=== PATIENT | male | born 1930 | race Asian ===

== ENCOUNTER 2019-01-22 01:47 | Inpatient (IN) | payer MEDICARE, OTHER ==
[2019-01-22] MEDS: IPRATROPIUM (NEB) 0.5 MG/2.5 ML AMP INH (02:13)
[2019-01-22] MEDS: ALBUTEROL 0.5% (NEB) 2.5 MG/0.5 ML AMP INH (02:13)
[2019-01-22 02:27] LABS: Allen Test ACCEPTAB; MODE MASK - SIMPLE; MetHgb Venous 0.3 %; Sample Type Blood venous; Site VENOUS LINE; Venous COHb 0.9 %; Venous Fraction OxyHgb 66.1 %; Venous Oxygen Sat 66.9 mmHG (55.0-75.0); Venous Total Hemglobin 14.2 g/dl
[2019-01-22 02:31] LABS: ADD MAN DIFF? NO
[2019-01-22 02:32] LABS: BASOPHIL # 0.1 10^3/ul (0.0-0.1); BASOPHILS % 0.3 % (0.0-2.0); EOSINOPHILS % 0.2 % (0.0-7.0); HEMATOCRIT 42.9 % (42.0-52.0); HEMOGLOBIN 13.7 g/dl (14.0-18.0); LYMPHOCYTES # 1.9 10^3/ul (0.8-2.9); MEAN CORPUSCULAR HEMOGLOBIN 28.4 pg (29.0-33.0); MEAN CORPUSCULAR HGB CONC 31.9 g/dl (32.0-37.0); MEAN CORPUSCULAR VOLUME 88.8 fl (82.0-101.0); MEAN PLATELET VOLUME 10.8 fl (7.4-10.4); MONOCYTES % 5.8 % (0.0-11.0); NEUTROPHIL # 14.5 10^3/ul (1.6-7.5); NEUTROPHILS % 82.2 % (39.0-77.0); PLATELET COUNT 239 10^3/UL (140-415); RED BLOOD COUNT 4.83 10^6/ul (4.70-6.10); RED CELL DISTRIBUTION WIDTH 16.4 % (11.5-14.5)
[2019-01-22 02:32] LABS: WHITE BLOOD COUNT 17.6 10^3/ul (4.8-10.8)
[2019-01-22 02:56] LABS: ANION GAP 16 (5-13); BLOOD UREA NITROGEN 53 mg/dl (7-20); CALCIUM 9.7 mg/dl (8.4-10.2); CARBON DIOXIDE 28 mmol/L (21-31); CHLORIDE 95 mmol/L (97-110); CREATININE 7.53 mg/dl (0.61-1.24); GLUCOSE 196 mg/dl (70-220); SODIUM 139 mmol/L (135-144)
[2019-01-22] MEDS: SODIUM CHLORIDE 0.9% 1L BAG IV* (03:29)
[2019-01-22] MEDS: CEFEPIME 2GM/50 ML (PMX) 50 ML IVPB (03:29)
[2019-01-22] MEDS: VANCOMYCIN 1 GM (PMX) 250 ML IVPB (04:11)
[2019-01-22] MEDS ORDERED: ONDANSETRON 4 MG INJ IV (05:00)
[2019-01-22] MEDS ORDERED: ACETAMINOPHEN 325 MG TAB PO (05:00)
[2019-01-22 05:19] LABS: B-TYPE NATRIURETIC PEPTIDE 60600 PG/ML (0-450)
[2019-01-22 06:20] LABS: LACTIC ACID 2.8 mmol/L (0.5-2.0)
[2019-01-22] MEDS ORDERED: VANCOMYCIN IV PER PHARMACY XX (08:30)
[2019-01-22] MEDS ORDERED: MAGNESIUM HYDROXIDE 30ML CUP PO (08:30)
[2019-01-22] MEDS: HYDROCODONE/APAP (5/325) TAB PO (09:42)
[2019-01-22] MEDS ORDERED: DEXTROSE 50% 50 ML SYRINGE IV ×2 (10:00)
[2019-01-22] MEDS ORDERED: GLUCOSE GEL 15 GRAM TUBE PO ×2 (10:00)
[2019-01-22] MEDS ORDERED: GLUCAGON 1 MG INJ IM (10:00)
[2019-01-22] MEDS ORDERED: GLUCOSE GEL 15 GRAM TUBE BUCCAL (10:00)
[2019-01-22] MEDS: APIXABAN 5 MG TABLET PO ×2 (10:05→21:34)
[2019-01-22] MEDS: METOPROLOL 25 MG TAB PO ×2 (10:05→21:35)
[2019-01-22] MEDS: INSULIN ASPART [NOVOLOG] 3 ML PEN SC ×3 (11:39→21:00)
[2019-01-22] MEDS: SEVELAMER CARBONATE 0.8 GM PKT PO ×2 (11:50→18:27)
[2019-01-22 12:23] LABS: HEPATITIS B SURFACE ANTIBODY NEGATIVE (NEGATIVE)
[2019-01-22 13:01] LABS: HEPATITIS B SURFACE ANTIGEN NEGATIVE (NEGATIVE)
[2019-01-22] MEDS: AMLODIPINE 5 MG TAB PO (13:26)
[2019-01-22] MEDS: MULTIVIT/CA CARB/B CMPLX/FA TAB PO (15:08)
[2019-01-22] MEDS: DOCUSATE SODIUM 250 MG CAP PO (15:09)
[2019-01-22] MEDS: ASCORBIC ACID 500 MG TAB PO (15:09)
[2019-01-22] MEDS: POLYETHYLENE GLYCOL 17 GM PACKET PO (15:09)
[2019-01-22] MEDS: FINASTERIDE 5 MG TAB PO (15:09)
[2019-01-22] MEDS: ACETAMINOPHEN 500 MG TAB PO (15:21)
[2019-01-22] MEDS: ATORVASTATIN 10 MG TAB PO (21:35)
[2019-01-23 06:49] LABS: ADD MAN DIFF? NO
[2019-01-23 06:56] LABS: BASOPHILS % 0.3 % (0.0-2.0); EOSINOPHILS % 0.1 % (0.0-7.0); HEMOGLOBIN 11.7 g/dl (14.0-18.0); LYMPHOCYTES # 0.8 10^3/ul (0.8-2.9); LYMPHOCYTES % 7.1 % (15.0-51.0); MEAN CORPUSCULAR HEMOGLOBIN 28.8 pg (29.0-33.0); MEAN CORPUSCULAR HGB CONC 32.5 g/dl (32.0-37.0); MEAN CORPUSCULAR VOLUME 88.7 fl (82.0-101.0); MEAN PLATELET VOLUME 11.6 fl (7.4-10.4); MONOCYTES % 9.1 % (0.0-11.0); NEUTROPHIL # 9.2 10^3/ul (1.6-7.5); PLATELET COUNT 199 10^3/UL (140-415); RED BLOOD COUNT 4.06 10^6/ul (4.70-6.10); RED CELL DISTRIBUTION WIDTH 16.6 % (11.5-14.5)
[2019-01-23 07:23] LABS: ANION GAP 13 (5-13); BLOOD UREA NITROGEN 34 mg/dl (7-20); CALCIUM 9.5 mg/dl (8.4-10.2); CARBON DIOXIDE 29 mmol/L (21-31); CHLORIDE 98 mmol/L (97-110); CREATININE 5.59 mg/dl (0.61-1.24); GLUCOSE 85 mg/dl (70-220); MAGNESIUM 2.1 mg/dl (1.7-2.5); PHOSPHORUS 4.7 mg/dl (2.5-4.9); POTASSIUM 5.6 mmol/L (3.5-5.1); SODIUM 140 mmol/L (135-144)
[2019-01-23] MEDS: INSULIN ASPART [NOVOLOG] 3 ML PEN SC ×4 (07:53→20:49)
[2019-01-23] MEDS: SEVELAMER CARBONATE 0.8 GM PKT PO ×3 (08:37→16:59)
[2019-01-23] MEDS: POLYETHYLENE GLYCOL 17 GM PACKET PO (08:37)
[2019-01-23] MEDS: APIXABAN 5 MG TABLET PO ×2 (08:38→20:49)
[2019-01-23] MEDS: ASCORBIC ACID 500 MG TAB PO (08:38)
[2019-01-23] MEDS: DOCUSATE SODIUM 250 MG CAP PO (08:38)
[2019-01-23] MEDS: MULTIVIT/CA CARB/B CMPLX/FA TAB PO (08:38)
[2019-01-23] MEDS: FINASTERIDE 5 MG TAB PO (08:38)
[2019-01-23] MEDS: METOPROLOL 25 MG TAB PO ×2 (08:42→21:00)
[2019-01-23] MEDS: AMLODIPINE 5 MG TAB PO (08:43)
[2019-01-23 10:23] LABS: CREATINE KINASE 32 IU/L (23-200)
[2019-01-23 10:33] LABS: CK-MB 0.65 ng/ml (0.0-2.4)
[2019-01-23 10:37] LABS: TROPONIN-I 0.022 ng/ml (0.000-0.120)
[2019-01-23] MEDS: ACETAMINOPHEN 500 MG TAB PO (11:29)
[2019-01-23] MEDS: CEFEPIME 1GM/50 ML (PMX) 50 ML IVPB (11:30)
[2019-01-23] MEDS: ATORVASTATIN 10 MG TAB PO (20:49)
[2019-01-24 06:51] LABS: WHITE BLOOD COUNT 8.3 10^3/ul (4.8-10.8)
[2019-01-24 06:51] LABS: ADD MAN DIFF? NO; BASOPHIL # 0.1 10^3/ul (0.0-0.1); BASOPHILS % 0.7 % (0.0-2.0); EOSINOPHILS % 0.4 % (0.0-7.0); HEMATOCRIT 36.8 % (42.0-52.0); HEMOGLOBIN 12.3 g/dl (14.0-18.0); LYMPHOCYTES % 12.3 % (15.0-51.0); MEAN CORPUSCULAR HEMOGLOBIN 29.3 pg (29.0-33.0); MEAN CORPUSCULAR HGB CONC 33.4 g/dl (32.0-37.0); MEAN CORPUSCULAR VOLUME 87.6 fl (82.0-101.0); MEAN PLATELET VOLUME 11.3 fl (7.4-10.4); MONOCYTES % 11.7 % (0.0-11.0); NEUTROPHIL # 6.2 10^3/ul (1.6-7.5); NEUTROPHILS % 74.7 % (39.0-77.0); PLATELET COUNT 220 10^3/UL (140-415); RED CELL DISTRIBUTION WIDTH 16.4 % (11.5-14.5)
[2019-01-24 07:05] LABS: ANION GAP 12 (5-13); BLOOD UREA NITROGEN 22 mg/dl (7-20); CALCIUM 9.2 mg/dl (8.4-10.2); CARBON DIOXIDE 31 mmol/L (21-31); CHLORIDE 96 mmol/L (97-110); CREATININE 3.92 mg/dl (0.61-1.24); GLUCOSE 77 mg/dl (70-220); PHOSPHORUS 3.5 mg/dl (2.5-4.9); POTASSIUM 4.4 mmol/L (3.5-5.1); SODIUM 139 mmol/L (135-144)
[2019-01-24 07:26] LABS: VANCOMYCIN,RANDOM 8.4 ug/ml
[2019-01-24] MEDS: INSULIN ASPART [NOVOLOG] 3 ML PEN SC ×4 (07:55→21:00)
[2019-01-24] MEDS: ASCORBIC ACID 500 MG TAB PO (08:25)
[2019-01-24] MEDS: DOCUSATE SODIUM 250 MG CAP PO (08:25)
[2019-01-24] MEDS: MULTIVIT/CA CARB/B CMPLX/FA TAB PO (08:25)
[2019-01-24] MEDS: METOPROLOL 25 MG TAB PO ×2 (08:25→21:00)
[2019-01-24] MEDS: SEVELAMER CARBONATE 0.8 GM PKT PO ×3 (08:25→19:10)
[2019-01-24] MEDS: APIXABAN 5 MG TABLET PO ×2 (08:25→21:13)
[2019-01-24] MEDS: FINASTERIDE 5 MG TAB PO (08:25)
[2019-01-24] MEDS: AMLODIPINE 5 MG TAB PO (08:25)
[2019-01-24] MEDS: POLYETHYLENE GLYCOL 17 GM PACKET PO (08:25)
[2019-01-24] MEDS: CEFEPIME 1GM/50 ML (PMX) 50 ML IVPB (11:40)
[2019-01-24] MEDS ORDERED: VANCOMYCIN HCL 1.25 GM in SOD CHLORIDE 0.9% 250 ML IVPB (14:00)
[2019-01-24] MEDS: VANCOMYCIN HCL 1.25 GM in SOD CHLORIDE 0.9% 250 ML IVPB (19:05)
[2019-01-24] MEDS: ATORVASTATIN 10 MG TAB PO (21:13)
[2019-01-25] MEDS: INSULIN ASPART [NOVOLOG] 3 ML PEN SC ×4 (07:55→20:40)
[2019-01-25] MEDS: METOPROLOL 25 MG TAB PO ×2 (08:42→20:40)
[2019-01-25] MEDS: ASCORBIC ACID 500 MG TAB PO (08:43)
[2019-01-25] MEDS: FINASTERIDE 5 MG TAB PO (08:43)
[2019-01-25] MEDS: DOCUSATE SODIUM 250 MG CAP PO (08:43)
[2019-01-25] MEDS: APIXABAN 5 MG TABLET PO ×2 (08:43→20:35)
[2019-01-25] MEDS: MULTIVIT/CA CARB/B CMPLX/FA TAB PO (08:43)
[2019-01-25] MEDS: AMLODIPINE 5 MG TAB PO (08:44)
[2019-01-25] MEDS: POLYETHYLENE GLYCOL 17 GM PACKET PO (08:44)
[2019-01-25] MEDS: SEVELAMER CARBONATE 0.8 GM PKT PO ×3 (08:44→17:04)
[2019-01-25] MEDS: CEFEPIME 1GM/50 ML (PMX) 50 ML IVPB (11:54)
[2019-01-25] MEDS: ATORVASTATIN 10 MG TAB PO (20:36)
[2019-01-26] MEDS: HYDROCODONE/APAP (5/325) TAB PO (02:26)
[2019-01-26 06:33] LABS: ADD MAN DIFF? NO
[2019-01-26 06:40] LABS: BASOPHIL # 0.1 10^3/ul (0.0-0.1); EOSINOPHILS # 0.3 10^3/ul (0.0-0.5); EOSINOPHILS % 4.7 % (0.0-7.0); HEMATOCRIT 33.9 % (42.0-52.0); HEMOGLOBIN 11.2 g/dl (14.0-18.0); LYMPHOCYTES # 1.1 10^3/ul (0.8-2.9); MEAN CORPUSCULAR HEMOGLOBIN 28.7 pg (29.0-33.0); MEAN CORPUSCULAR VOLUME 86.9 fl (82.0-101.0); MEAN PLATELET VOLUME 10.9 fl (7.4-10.4); MONOCYTE # 0.7 10^3/ul (0.3-0.9); NEUTROPHIL # 3.7 10^3/ul (1.6-7.5); NEUTROPHILS % 62.8 % (39.0-77.0); PLATELET COUNT 235 10^3/UL (140-415); RED CELL DISTRIBUTION WIDTH 15.7 % (11.5-14.5)
[2019-01-26 06:40] LABS: WHITE BLOOD COUNT 5.9 10^3/ul (4.8-10.8)
[2019-01-26 07:13] LABS: VANCOMYCIN,RANDOM 18.1 ug/ml
[2019-01-26 07:26] LABS: ANION GAP 12 (5-13); BLOOD UREA NITROGEN 43 mg/dl (7-20); CALCIUM 8.8 mg/dl (8.4-10.2); CARBON DIOXIDE 29 mmol/L (21-31); CHLORIDE 96 mmol/L (97-110); CREATININE 5.26 mg/dl (0.61-1.24); GLUCOSE 80 mg/dl (70-220); MAGNESIUM 2.1 mg/dl (1.7-2.5); PHOSPHORUS 3.8 mg/dl (2.5-4.9); POTASSIUM 4.2 mmol/L (3.5-5.1); SODIUM 137 mmol/L (135-144)
[2019-01-26] MEDS: INSULIN ASPART [NOVOLOG] 3 ML PEN SC ×4 (07:55→21:00)
[2019-01-26] MEDS: FINASTERIDE 5 MG TAB PO (08:27)
[2019-01-26] MEDS: DOCUSATE SODIUM 250 MG CAP PO (08:27)
[2019-01-26] MEDS: SEVELAMER CARBONATE 0.8 GM PKT PO ×3 (08:27→17:01)
[2019-01-26] MEDS: ASCORBIC ACID 500 MG TAB PO (08:27)
[2019-01-26] MEDS: MULTIVIT/CA CARB/B CMPLX/FA TAB PO (08:27)
[2019-01-26] MEDS: APIXABAN 5 MG TABLET PO ×2 (08:27→21:00)
[2019-01-26] MEDS: POLYETHYLENE GLYCOL 17 GM PACKET PO (08:29)
[2019-01-26] MEDS: METOPROLOL 25 MG TAB PO ×3 (08:33→21:00)
[2019-01-26] MEDS: AMLODIPINE 5 MG TAB PO (09:00)
[2019-01-26] MEDS: CEFEPIME 1GM/50 ML (PMX) 50 ML IVPB (11:52)
[2019-01-26] MEDS: ATORVASTATIN 10 MG TAB PO (21:00)
[2019-01-26] MEDS: VANCOMYCIN 1 GM 250 ML IVPB (22:10)
[2019-01-27 06:42] LABS: ADD MAN DIFF? NO
[2019-01-27 06:56] LABS: BASOPHIL # 0.1 10^3/ul (0.0-0.1); BASOPHILS % 1.2 % (0.0-2.0); EOSINOPHILS # 0.3 10^3/ul (0.0-0.5); EOSINOPHILS % 4.7 % (0.0-7.0); HEMATOCRIT 36.5 % (42.0-52.0); HEMOGLOBIN 12.1 g/dl (14.0-18.0); LYMPHOCYTES # 1.3 10^3/ul (0.8-2.9); LYMPHOCYTES % 21.1 % (15.0-51.0); MEAN CORPUSCULAR HEMOGLOBIN 28.5 pg (29.0-33.0); MEAN CORPUSCULAR HGB CONC 33.2 g/dl (32.0-37.0); MEAN CORPUSCULAR VOLUME 85.9 fl (82.0-101.0); MEAN PLATELET VOLUME 10.9 fl (7.4-10.4); MONOCYTE # 0.6 10^3/ul (0.3-0.9); MONOCYTES % 10.6 % (0.0-11.0); NEUTROPHIL # 3.7 10^3/ul (1.6-7.5); NEUTROPHILS % 61.7 % (39.0-77.0); PLATELET COUNT 274 10^3/UL (140-415); RED BLOOD COUNT 4.25 10^6/ul (4.70-6.10); RED CELL DISTRIBUTION WIDTH 15.8 % (11.5-14.5)
[2019-01-27 06:56] LABS: WHITE BLOOD COUNT 5.9 10^3/ul (4.8-10.8)
[2019-01-27 07:15] LABS: ANION GAP 12 (5-13); BLOOD UREA NITROGEN 24 mg/dl (7-20); CALCIUM 9.4 mg/dl (8.4-10.2); CARBON DIOXIDE 31 mmol/L (21-31); CHLORIDE 97 mmol/L (97-110); CREATININE 3.99 mg/dl (0.61-1.24); GLUCOSE 86 mg/dl (70-220); MAGNESIUM 2.1 mg/dl (1.7-2.5); POTASSIUM 4.6 mmol/L (3.5-5.1); SODIUM 140 mmol/L (135-144)
[2019-01-27] MEDS: INSULIN ASPART [NOVOLOG] 3 ML PEN SC ×4 (07:55→21:00)
[2019-01-27] MEDS: METOPROLOL 25 MG TAB PO ×2 (08:08→21:12)
[2019-01-27] MEDS: FINASTERIDE 5 MG TAB PO (08:08)
[2019-01-27] MEDS: SEVELAMER CARBONATE 0.8 GM PKT PO ×3 (08:08→17:01)
[2019-01-27] MEDS: AMLODIPINE 5 MG TAB PO (08:08)
[2019-01-27] MEDS: POLYETHYLENE GLYCOL 17 GM PACKET PO (08:08)
[2019-01-27] MEDS: MULTIVIT/CA CARB/B CMPLX/FA TAB PO (08:08)
[2019-01-27] MEDS: ASCORBIC ACID 500 MG TAB PO (08:08)
[2019-01-27] MEDS: APIXABAN 5 MG TABLET PO ×2 (08:09→21:11)
[2019-01-27] MEDS: DOCUSATE SODIUM 250 MG CAP PO (08:09)
[2019-01-27] MEDS: CEFEPIME 1GM/50 ML (PMX) 50 ML IVPB (11:56)
[2019-01-27] MEDS: ATORVASTATIN 10 MG TAB PO (21:11)
[2019-01-28] MEDS: INSULIN ASPART [NOVOLOG] 3 ML PEN SC ×3 (07:55→16:57)
[2019-01-28] MEDS: FINASTERIDE 5 MG TAB PO (08:05)
[2019-01-28] MEDS: POLYETHYLENE GLYCOL 17 GM PACKET PO (08:05)
[2019-01-28] MEDS: SEVELAMER CARBONATE 0.8 GM PKT PO ×3 (08:05→16:57)
[2019-01-28] MEDS: MULTIVIT/CA CARB/B CMPLX/FA TAB PO (08:05)
[2019-01-28] MEDS: ASCORBIC ACID 500 MG TAB PO (08:05)
[2019-01-28] MEDS: APIXABAN 5 MG TABLET PO (08:06)
[2019-01-28] MEDS: DOCUSATE SODIUM 250 MG CAP PO (08:06)
[2019-01-28] MEDS: METOPROLOL 25 MG TAB PO (08:12)
[2019-01-28] MEDS: AMLODIPINE 5 MG TAB PO (08:12)
[2019-01-28] MEDS: CEFEPIME 1GM/50 ML (PMX) 50 ML IVPB (11:52)
== END 2019-01-28 17:51 | DRG 871 ==
LOC: E/R 01:47 → TEL 04:46
PROVIDERS: Internal Medicine
PROC: 5A1D70Z Performance of Urinary Filtration, Intermittent, Less than 6 Hours Per Day (ICD-10-PCS; principal; 2019-01-22)
DX: A41.9 Sepsis, unspecified organism (principal); J96.01 Acute respiratory failure with hypoxia; J18.9 Pneumonia, unspecified organism; G92 Toxic encephalopathy; N18.6 End stage renal disease; I50.43 Acute on chronic combined systolic (congestive) and diastolic (congestive) heart failure; I13.2 Hypertensive heart and chronic kidney disease with heart failure and with stage 5 chronic kidney disease, or end stage renal disease; I50.9 Heart failure, unspecified; Z99.2 Dependence on renal dialysis; E87.5 Hyperkalemia; D63.1 Anemia in chronic kidney disease; I25.10 Atherosclerotic heart disease of native coronary artery without angina pectoris; I48.2 Chronic atrial fibrillation; E78.5 Hyperlipidemia, unspecified; N40.0 Benign prostatic hyperplasia without lower urinary tract symptoms; Z95.0 Presence of cardiac pacemaker; E11.22 Type 2 diabetes mellitus with diabetic chronic kidney disease; I49.5 Sick sinus syndrome; E87.70 Fluid overload, unspecified
CPT/HCPCS: 36415; 71045; 80048; 80202; 82550; 82553; 82803; 82962; 83605; 83735; 83880; 84100; 84484; 85025; 86706; 87040-91; 87340; 87400; 90935; 93005; 93306; 94644; 96374; 96375; 99285-25